=== PATIENT | female | born 1960 | race Caucasian/White ===

== ENCOUNTER 2017-04-08 10:22 | Observation (INO) | payer OTHER ==
[~2017-04-08] VITALS: Ht 167.6 cm; Wt 102.3 kg
[2017-04-08] MEDS ORDERED: LEXAPRO20 MG PO (10:49)
[2017-04-08] MEDS ORDERED: ZOCOR 10MG10 MG PO (10:50)
[2017-04-08] MEDS ORDERED: SYNTHROID 0.0.025 MG PO (10:50)
[2017-04-08] MEDS ORDERED: CLARITIN 1010 MG/TAB PO (10:51)
[2017-04-08] MEDS ORDERED: MELATONIN5 M1 SL (10:52)
[2017-04-08] MEDS ORDERED: estrogen (11:08)
[2017-04-08] MEDS ORDERED: bladder medication (11:09)
[2017-04-08] MEDS ORDERED: allergy medication (11:09)
[2017-04-08 16:00] VITALS: BP 123/61; PULSE 85; TEMP 97.8
[2017-04-08 16:15] VITALS: BP 131/71; PULSE 82
[2017-04-08 16:30] VITALS: BP 124/55; PULSE 88
[2017-04-08 16:45] VITALS: BP 135/58; PULSE 84
== END 2017-04-08 18:30 | disposition home or self-care (01) ==
LOC: COL.ER 10:22 → SURG 11:43
DX: S82.851A Displaced trimalleolar fracture of right lower leg, initial encounter for closed fracture (principal); W01.0XXA Fall on same level from slipping, tripping and stumbling without subsequent striking against object, initial encounter; Y93.89 Activity, other specified; Y92.096 Garden or yard of other non-institutional residence as the place of occurrence of the external cause; E07.9 Disorder of thyroid, unspecified; E78.00 Pure hypercholesterolemia, unspecified; N32.81 Overactive bladder; F32.9 Major depressive disorder, single episode, unspecified
CPT/HCPCS: C1713; J0690; J1100; J1170; J1885; J2250; J2405; J2704; J3010; J7030; J7120